=== PATIENT | female | born 1995 | race Caucasian/White ===

== ENCOUNTER 2020-08-02 06:52 | Inpatient (IN) ==
[2020-08-02 07:06] LABS: Hematocrit 33.5 % (37.0-47.0); Mean Cell Volume 86.6 fl (78-100); Mean Corpuscular Hemoglobin 28.4 pg (27-31); Mean Corpuscular Hgb Conc 32.8 g/dl (32-36); Mean Platelet Volume 9.2 fl (8-12.5); Neutrophil # 14.1 K/mm3 (1.3-6.0); Platelet Count 195 K/mm3 (150-450); Red Blood Count 3.87 M/mm3 (4.2-5.4); Red Cell Distribution Width 13.2 % (11.5-14.0); White Blood Count 17.2 K/mm3 (4.0-10.5)
[2020-08-02 07:21] LABS: Prothrombin Time (Patient) 9.9 Seconds (9.1-10.7)
[2020-08-02 07:25] LABS: Anion Gap 14.6 mmol/L (6.8-13.8); BUN/Creatinine Ratio 17.1 (9.0-21.6); Bilirubin, Total 0.4 mg/dL (0.0-1.1); Ca. Corrected For Albumin 9.3 mg/dL (8.4-10.2); INR 0.95 INR (0.92-1.08); Partial Thrombolplastin Time 22.1 Seconds (24-32); Potassium 3.6 mmol/L (3.4-4.6); Total Protein 5.5 gm/dL (6.2-8.2)
[2020-08-02] MEDS ORDERED: BUTORPHANOL TARTRATE 2 MG/ML VIAL IV PRN ×2 (07:32)
[2020-08-02] MEDS ORDERED: LIDOCAINE HCL 50 ML VIAL PERI PRN (07:32)
[2020-08-02] MEDS ORDERED: MISOPROSTOL 100 MCG TABLET VG PRN (07:32)
[2020-08-02] MEDS ORDERED: OXYTOCIN/0.9 % SODIUM CHLORIDE 30 UNITS/500 ML BAG IV ONE ×2 (07:32→09:52)
[2020-08-02] MEDS ORDERED: ONDANSETRON 4 MG TAB.RAPDIS PO PRN (07:32)
[2020-08-02] MEDS ORDERED: RINGER'S SOLUTION,LACTATED 1,000 ML IV ONE (07:32)
[2020-08-02] MEDS ORDERED: BUPIVACAINE HCL/0.9 % NACL/PF 250 ML EP PRN (07:33)
[2020-08-02] MEDS ORDERED: ONDANSETRON HCL/PF 2 MG/ML VIAL IV PRN ×2 (07:33→09:02)
[2020-08-02] MEDS ORDERED: NALOXONE HCL 1 MG/1 ML SYRG IV PRN (07:33)
[2020-08-02] MEDS ORDERED: fentaNYL CITRATE/PF 50 MCG/ML AMPUL IT SCH (07:45)
[2020-08-02] MEDS ORDERED: LIDOCAINE HCL 20 ML VIAL ONE (07:57)
[2020-08-02] MEDS ORDERED: NORMAL SALINE 20 ML VIAL ONE (07:57)
[2020-08-02] MEDS ORDERED: PROPOFOL VIAL IV ONE (07:57)
[2020-08-02] MEDS ORDERED: SUCCINYLCHOLINE CHLORIDE 20 MG/ML VIAL ONE (07:57)
[2020-08-02] MEDS: RINGER'S SOLUTION,LACTATED 1,000 ML IV PRN ×2 (08:00→08:55)
[2020-08-02] MEDS ORDERED: ceFAZolin SODIUM 1 GM VIAL IM ONE (08:00)
[2020-08-02] MEDS ORDERED: OXYTOCIN 10 UNITS/ML SYRG ONE (08:13)
[2020-08-02] MEDS ORDERED: ceFAZolin SODIUM 1 GM VIAL ONE (08:17)
[2020-08-02] MEDS ORDERED: KETOROLAC TROMETHAMINE 30 MG/ML VIAL IV PRN (09:02)
[2020-08-02] MEDS ORDERED: SENNOSIDES 8.6 MG TABLET PO PRN ×2 (09:02→09:52)
[2020-08-02] MEDS ORDERED: HYDROcodone/ACETAMINOPHEN 1 EACH TABLET PO PRN ×3 (09:02→09:52)
[2020-08-02] MEDS ORDERED: SIMETHICONE 80 MG TAB.CHEW PO PRN (09:02)
[2020-08-02] MEDS ORDERED: BISACODYL 10 MG SUPP.RECT RC PRN ×2 (09:02→09:52)
[2020-08-02] MEDS ORDERED: IBUPROFEN 800 MG TABLET PO PRN (09:02)
[2020-08-02] MEDS ORDERED: diphenhydrAMINE HCL 25 MG CAPSULE PO PRN ×2 (09:02→09:52)
[2020-08-02] MEDS ORDERED: KETOROLAC TROMETHAMINE 30 MG/ML VIAL ONE (09:19)
[2020-08-02] MEDS ORDERED: ONDANSETRON HCL/PF 2 MG/ML VIAL ONE (09:19)
--- NOTE | 2020-08-02 09:35 | HP ---
Chief Complaint - Chief Complaint Date of Service: 08/02/20 Time of Service: 09:04 Chief Complaint: heavy vaginal bleeding History of Present Illness: 25 year old at 36w 6d who presented to labor and delivery complaining of gushing large amounts of blood. The patient reported that it look like blood but no fluid. She also complained of severe abdominal pain that felt more painful than contractions. Fetus was active. Medical History (Last Reviewed 08/02/20 @ 09:07 by Catherine Melvin MD) Spontaneous vaginal delivery (Acute) Anxiety Onset Date: Unknown Depression Onset Date: Unknown Gestational hypertension Onset Date: 07/22/14 Late care Onset Date: 05/31/14 Obesity Onset Date: 10/07/15 Tonsillar hypertrophy Onset Date: 02/04/16 Surgical History: Surgical History (Last Reviewed 07/25/20 @ 09:13 by Catherine Melvin MD) H/O adenoidectomy Onset Date: Unknown History of elbow surgery Onset Date: ~1999 History of tonsillectomy Onset Date: Unknown Hx laparoscopic cholecystectomy Onset Date: 09/10/14 Family History: Family History (Last Reviewed 08/02/20 @ 09:07 by Catherine Melvin MD) Father GERD (gastroesophageal reflux disease) Lung disease Mother Alive and well Sister Alive and well Social History: (Last Reviewed 08/02/20 @ 09:07 by Catherine Melvin MD) Social History: adopted: No Marital status: household members: spouse number of children: 1 current occupational status: employed current occupation: bank courier Highest level of school completed/degree received: Associate degree: occupat Service: No Tobacco: Smoking Status: Never smoker Alcohol: alcohol intake: never Substance Use: substance use type: does not use Dietary Habits: caffeine: No Exercise: Physical activity type: none Review Of Systems (GEN) - Review of Systems Generalized/Overall Review: Present: No Symptoms Reported Abdominal: Present: Other - abdominal pain Genitourinary: Present: Other - vaginal bleeding Immunizations: IMMUNIZATION HX Immunizations Up to Date Yes History of Influenza Vaccine Yes Hx Pneumococcal Vaccination No Allergies/Adverse Reactions: Allergies Allergy/AdvReac Type Severity Reaction Status Date / Time No Known Allergies Allergy Verified 07/31/20 08:57 Home Medications: HOME MEDICATIONS levocetirizine 5 mg tablet 5 mg PO DAILY 01/21/20 [Last Taken 08/01/20] Vits96/Iron Fum/Folic [ S] 1 tab PO DAILY 07/25/20 [Last Taken 08/01/20] Exam - Exam Vital Signs: 35.7 151/99 99 96% 24 Constitutional: Present: Alert, Oriented x3, Cooperative, Acute distress ENT Exam: Present: hearing grossly normal Eye Exam: bilateral eye: normal inspection Neck: Present: normal inspection Back Exam: Present: normal inspection Breasts: Present: Exam deferred Respiratory: Present: lungs clear, normal breath sounds, no respiratory distress Cardiovascular/Chest: Present: regular rate, rhythm Abdomen: Present: soft, nondistended - tender throughout all quadrants /Rectal: Present: Other - 3/80/-2 AROM done for thick meconium, IUPC and FSE were placed Extremity: Present: non-tender, no calf tenderness Skin Exam: Present: normal color, warm/dry, no cyanosis Neurologic: Present: alert, normal mood/affect, oriented x 3 Appearance: Present: appropriate appearance, appropriate insight, neat, no memory impairment Eye contact: Present: cooperative, good eye contact, normal speech Thoughts: Present: normal thought pattern Diagnostic Studies: Abnormal Lab Results 08/02/20 08/02/20 08/02/20 Range/Units 07:00 07:00 07:00 WBC 17.2 H (4.0-10.5) K/mm3 RBC 3.87 L (4.2-5.4) M/mm3 Hgb 11.0 L (12.5-16.0) gm/dL Hct 33.5 L (37.0-47.0) % Immature Gran % (Auto) 1.60 H (0.001-0.429) % Immature Gran # (Auto) 0.28 H (0.000-0.0310) K/mm3 Neutrophils % 82.0 H (42-75.0) % Lymphocytes % 9.5 L (20-51) % Neutrophils # 14.1 H (1.3-6.0) K/mm3 Monocytes # 1.1 H (0.0-1.0) k/mm3 PTT (Winn) 22.1 L (24-32) Seconds Carbon Dioxide (24-32.6) mmol/L Anion Gap (6.8-13.8) mmol/L Random Glucose (70-110) mg/dL Alkaline Phosphatase (50-170) U/L Total Protein (6.2-8.2) gm/dL Albumin (3.4-5.0) gm/dl Crossmatch See Detail 08/02/20 Range/Units 07:00 WBC (4.0-10.5) K/mm3 RBC (4.2-5.4) M/mm3 Hgb (12.5-16.0) gm/dL Hct (37.0-47.0) % Immature Gran % (Auto) (0.001-0.429) % Immature Gran # (Auto) (0.000-0.0310) K/mm3 Neutrophils % (42-75.0) % Lymphocytes % (20-51) % Neutrophils # (1.3-6.0) K/mm3 Monocytes # (0.0-1.0) k/mm3 PTT ([place]inn) (24-32) Seconds Carbon Dioxide 19.0 L (24-32.6) mmol/L Anion Gap 14.6 H (6.8-13.8) mmol/L Random Glucose 111 H (70-110) mg/dL Alkaline Phosphatase 194 H (50-170) U/L Total Protein 5.5 L (6.2-8.2) gm/dL Albumin 2.0 L (3.4-5.0) gm/dl Crossmatch Laboratory Results WBC 17.2 K/mm3 (4.0-10.5) H 08/02/20 07:00 RBC 3.87 M/mm3 (4.2-5.4) L 08/02/20 07:00 Hgb 11.0 gm/dL (12.5-16.0) L 08/02/20 07:00 Hct 33.5 % (37.0-47.0) L 08/02/20 07:00 MCV 86.6 fl (78-100) 08/02/20 07:00 MCH 28.4 pg (27-31) 08/02/20 07:00 MCHC 32.8 g/dl (32-36) 08/02/20 07:00 RDW 13.2 % (11.5-14.0) 08/02/20 07:00 Plt Count 195 K/mm3 (150-450) 08/02/20 07:00 MPV 9.2 fl (8-12.5) 08/02/20 07:00 Immature Gran % (Auto) 1.60 % (0.001-0.429) H 08/02/20 07:00 Immature Gran # (Auto) 0.28 K/mm3 (0.000-0.0310) H 08/02/20 07:00 Neutrophils % 82.0 % (42-75.0) H 08/02/20 07:00 Lymphocytes % 9.5 % (20-51) L 08/02/20 07:00 Monocytes % 6.3 % (0.0-9) 08/02/20 07:00 Eosinophils % 0.3 % (0.0-3.0) 08/02/20 07:00 Basophils % 0.3 % (0.0-1.0) 08/02/20 07:00 Nucleated RBC % 0.0 k/mm3 (0-1) 08/02/20 07:00 Neutrophils # 14.1 K/mm3 (1.3-6.0) H 08/02/20 07:00 Lymphocytes # 1.64 k/mm3 (1.5-3.5) 08/02/20 07:00 Monocytes # 1.1 k/mm3 (0.0-1.0) H 08/02/20 07:00 Eosinophils # 0.1 k/mm3 (0.0-0.7) 08/02/20 07:00 Absolute Basophils 0.1 k/mm3 (0.0-0.1) 08/02/20 07:00 PT 9.9 Seconds (9.1-10.7) 08/02/20 07:00 INR (Anticoag Therapy) 0.95 INR (0.92-1.08) 08/02/20 07:00 PTT (Winn) 22.1 Seconds (24-32) L 08/02/20 07:00 Fibrinogen 269 mg/dL (202-388) 08/02/20 07:00 Sodium 136 mmol/L (132-142) 08/02/20 07:00 Plasma Sodium 136 mmol/L (130-142) 08/02/20 07:00 Potassium 3.6 mmol/L (3.4-4.6) 08/02/20 07:00 Chloride 106 mmol/L (97-106) 08/02/20 07:00 Carbon Dioxide 19.0 mmol/L (24-32.6) L 08/02/20 07:00 Anion Gap 14.6 mmol/L (6.8-13.8) H 08/02/20 07:00 BUN 20 mg/dL (3-23) 08/02/20 07:00 Creatinine 1.17 mg/dL (0.4-1.4) 08/02/20 07:00 Est GFR (Non-Af Amer) 61 mL/min (60-130) 08/02/20 07:00 BUN/Creatinine Ratio 17.1 (9.0-21.6) 08/02/20 07:00 Random Glucose 111 mg/dL (70-110) H 08/02/20 07:00 Calcium 8.0 mg/dL (7.9-10.9) 08/02/20 07:00 Calcium Adj for Albumin 9.3 mg/dL (8.4-10.2) 08/02/20 07:00 Total Bilirubin 0.4 mg/dL (0.0-1.1) 08/02/20 07:00 AST 24 U/L (0-48) 08/02/20 07:00 ALT 29 U/L (19-67) 08/02/20 07:00 Alkaline Phosphatase 194 U/L (50-170) H 08/02/20 07:00 Total Protein 5.5 gm/dL (6.2-8.2) L 08/02/20 07:00 Albumin 2.0 gm/dl (3.4-5.0) L 08/02/20 07:00 Blood Type A Positive 08/02/20 07:00 Antibody Screen Negative 08/02/20 07:00 Crossmatch See Detail 08/02/20 07:00 Assessment/Plan - Narrative Narrative: The patient is a 25 year old at 36w 6d who presented to labor and delivery complaining of heavy vaginal bleeding. I attempted to perform a speculum examination but just placing the speculum lead to a large gush of blood. I checked the patient's cervix and it was 3/80/-2. The patient had severe abdominal tenderness in all quadrants consistent with placental abruption. I considered ordering an ultrasound to look for evidence of placental abruption but I did not because I did not feel it would change the management. I ruptured the patient's membranes and thick meconium was noted. There was difficulty both monitoring the baby as well as the contractions and thus I placed an IUPC followed by an FSE. After close observation of the heart tracing there were no accelerations. The baseline was normal. There were late decelerations with every contraction and the variability was minimal to absent. Therefore, this category 3 tracing required a STAT delivery. The patient had stat labs checked. Her hemoglobin was normal. The platelets were normal. She had thrombocytopenia on 07/28/20 at which time her platelets were 140. Repeat assessment of the platelets on 07/29/20 and 07/31/20 respectively showed normal platelets. Fibrinogen, PT/PTT is normal on admission to L&D. - Assessment/Plan (1) Placental abruption Problem: Acute Qualifiers: Trimester: third trimester Qualified Code(s): O45.93 - Premature separation of placenta, unspecified, third trimester (2) History of thrombocytopenia Problem: Acute (3) 36 weeks gestation of Problem: Acute (4) Thick meconium stained amniotic fluid Problem: Acute (5) Pre-eclampsia Problem: Acute Qualifiers: Trimester: third trimester Qualified Code(s): O14.93 - Unspecified pre- eclampsia, third trimester (6) Normal Pap smear Problem: Acute (7) Rh(D) positive Problem: Acute (8) Heartburn Problem: Acute
--- NOTE | 2020-08-02 09:44 | OR ---
Operative Report - Dictated Report Narrative: Date of delivery: 08/02/20 Time of delivery: 815 Gender: female weight: 2639 grams APGARS: Preoperative diagnosis: IUP at 36w 6d, pre-eclampsia, placental abruption, thick meconium, category III heart tracing Postoperative diagnosis: same in addition to foul smelling amniotic fluid Procedure: STAT primary delivery Surgeon: Dr. Melvin Anesthesia: GETA Anesthesiologist: Johnie Mills CRNA Description of the procedure: The patient was taken to the operating room where general anesthesia was induced. She was then prepped and draped in the supine position in the standard surgical fashion. A large Pfannestiel skin incision was made. The incision was carried through the subcutaneous tissue. The fascia was incised in the midline. The fascia was grasped with Daniela clamps and dissected from the underlying rectus muscles. The rectus muscles were in the midline. The peritoneum was entered bluntly. A large Javi retractor was placed in the abdomen. The uterus was incised in a low transverse fashion. The uterine incision was extended bluntly. The head was delivered followed by the rest of the infant atraumatically. The cord was clamped and cut and the was handed off to the attending pediatric staff. The placenta was delivered by expression, intact, and without difficulty. A large clot was noted between the placenta and the uterine wall. The uterus was cleared of all clots and debris. The uterine incision was closed with two layers of 0-vicryl. The second layer was an imbricating layer. Hemostasis was adequate. The subfascial tissues were inspected for hemostasis as were the rectus muscles. The subcutaneous tissue was made hemostatic as well. The fascia was closed with 0-vicryl. The subcutaneous tissue 's space was closed with 2-0 vicryl. The skin was closed with 3-0 monocryl on a Gary needle. Hutchins vora was placed over the incision. The incision was covered with a band aid. All sponge, lap, and needle counts were correct. The patient tolerated the procedure well. She was taken to the recovery room in stable condition. EBL: 500 mL Complications: none History for MU Definition: * The number of deliveries resulting in a live the patient experienced prior to current hospitalization * The previous delivery of live twins or any live multiple gestation is considered one live event. *If primagravida or nulliparous is documented select zero for the number of previous live births. Live Events: 1
[2020-08-02] MEDS ORDERED: GENTAMICIN SULFATE IV ONE ×2 (09:47)
[2020-08-02] MEDS ORDERED: WATER IV ONE ×2 (09:47)
[2020-08-02] MEDS ORDERED: DEXTROSE 5% IV ONE ×2 (09:47)
[2020-08-02] MEDS ORDERED: BENZOCAINE/MENTHOL 81 SPRAY CAN TP PRN (09:52)
[2020-08-02] MEDS ORDERED: GLYCERIN/WITCH HAZEL LEAF 40 APPL BOX TP PRN (09:52)
[2020-08-02] MEDS ORDERED: HYDROCORTISONE 30 APPL TUBE TP PRN (09:52)
--- NOTE | 2020-08-02 09:58 | ANES ---
Anesthesia Pre Procedure Eval Vitals/Labs: Last Vital Signs Temp 36.0 C 08/02/20 09:35 Pulse 97 08/02/20 09:35 Resp 12 08/02/20 09:35 BP 128/83 08/02/20 09:35 Pulse Ox 97 08/02/20 09:35 HOME MEDICATIONS levocetirizine 5 mg tablet 5 mg PO DAILY 01/21/20 [Last Taken 08/01/20] Vits96/Iron Fum/Folic [ S] 1 tab PO DAILY 07/25/20 [Last Taken 08/01/20] Allergies/Adverse Reactions: Allergies Allergy/AdvReac Type Severity Reaction Status Date / Time No Known Allergies Allergy Verified 07/31/20 08:57 - Planned Procedure Planned Procedure: rule out labor Medication List Reviewed:: Yes Allergies Verified: Yes Medical History (Last Reviewed 08/02/20 @ 09:57 by Jesse Mills CRNA) Spontaneous vaginal delivery (Acute) Anxiety Onset Date: Unknown Depression Onset Date: Unknown Gestational hypertension Onset Date: 07/22/14 Late care Onset Date: 05/31/14 Obesity Onset Date: 10/07/15 Tonsillar hypertrophy Onset Date: 02/04/16 Surgical History (Last Reviewed 08/02/20 @ 09:58 by Jesse Mills CRNA) H/O adenoidectomy Onset Date: Unknown History of elbow surgery Onset Date: ~1999 History of tonsillectomy Onset Date: Unknown Hx laparoscopic cholecystectomy Onset Date: 09/10/14 Family History (Last Reviewed 08/02/20 @ 09:58 by Jesse Mills CRNA) Father GERD (gastroesophageal reflux disease) Lung disease Mother Alive and well Sister Alive and well - Family Anesthesia History Family History:: no untoward family reactions to anesthesia - Airway/Neck/Teeth Within Normal Limits:: Yes Teeth Condition: intact Neck Exam: limited range of motion Mallampatti Score: 3 Thyromental (T-M) distance: > 6 cm Mandibulo Hyoid distance: > 3 cm - Respiratory Respiratory Physical: lungs clear Smoking Status: Never smoker Sleep Apnea currently treated: No Sleep Apnea by current assessment: No - Cardiovascular Tolerate Activity: Fair Heart Sounds: S1 & S2, Regular - Gastrointestinal NPO since: MN - Anesthesia Assessment and Plan ASA Class: PS, III, E Anesthesia Type Plan: General ET Planned difficult intubation/equipment available: Yes
--- NOTE | 2020-08-02 09:58 | ANES ---
Post Anesthesia Discharge - Transfer of Care Transfer of Care handoff given to nurse: Yes - Discharge from PACU Discharge from PACU when meets criteria: Yes
--- NOTE | 2020-08-02 09:59 | ANES ---
Post Anesthesia Assessment - Vital Signs Vitals: Last Vital Signs Temp 36.0 C 08/02/20 09:35 Pulse 97 08/02/20 09:35 Resp 12 08/02/20 09:35 BP 128/83 08/02/20 09:35 Pulse Ox 97 08/02/20 09:35 Airway Patency: Normal - Mental Status Level Of Consciousness: Awake - Pain Level Pain Score: 4 - N/V Assessment Nausea/Vomiting Presence: None Dehydration:: No
[2020-08-02 10:13] LABS: Hematocrit 30.5 % (37.0-47.0); Hemoglobin 9.7 gm/dL (12.5-16.0); Mean Cell Volume 88.7 fl (78-100); Mean Corpuscular Hemoglobin 28.2 pg (27-31); Mean Corpuscular Hgb Conc 31.8 g/dl (32-36); Neutrophil % 88.6 % (42-75.0); Platelet Count 145 K/mm3 (150-450); Red Blood Count 3.44 M/mm3 (4.2-5.4); Red Cell Distribution Width 13.3 % (11.5-14.0); White Blood Count 24.9 K/mm3 (4.0-10.5)
[2020-08-02 10:16] LABS: Total Cells Counted 100
[2020-08-02 10:33] LABS: Band 5 % (0-2.0); Lymphocyte 3 % (20-51); Monocyte 3 % (0-9); Neutrophil 89 % (42-75); Neutrophil # 22.2 K/mm3 (1.3-6.0); Platelet Estimate Normal (NORMAL); RBC Morphology Normal (NORMAL)
[2020-08-02] MEDS: CLINDAMYCIN IN 0.9 % SOD CHLOR 900 MG/50 ML BAG IV SCH ×2 (11:03→17:25)
[2020-08-02] MEDS: AMPICILLIN SODIUM 2,000 MG in NORMAL SALINE 100 ML IV SCH ×3 (11:03→21:47)
[2020-08-02] MEDS ORDERED: MAGNESIUM SULFATE IN WATER 50 ML IV ONE ×2 (15:12)
[2020-08-02] MEDS ORDERED: RINGER'S SOLUTION,LACTATED 1,000 ML IV PRN (15:31)
[2020-08-02] MEDS ORDERED: MAGNESIUM SULFATE 4 MEQ/ML VIAL IV ONE (16:00)
[2020-08-02] MEDS: MAGNESIUM SULFATE IN WATER 1,000 ML IV SCH (16:52)
[2020-08-02] MEDS: IBUPROFEN 800 MG TABLET PO PRN (20:36)
[2020-08-02] MEDS ORDERED: DOCUSATE SODIUM 100 MG CAPSULE PO SCH (21:00)
[2020-08-02] MEDS: HYDROcodone/ACETAMINOPHEN 1 EACH TABLET PO PRN (21:47)
[2020-08-02] MEDS: DOCUSATE SODIUM 100 MG CAPSULE PO SCH (22:28)
[2020-08-03] MEDS: CLINDAMYCIN IN 0.9 % SOD CHLOR 900 MG/50 ML BAG IV SCH ×2 (01:41→09:58)
[2020-08-03] MEDS: AMPICILLIN SODIUM 2,000 MG in NORMAL SALINE 100 ML IV SCH (03:32)
[2020-08-03] MEDS: IBUPROFEN 800 MG TABLET PO PRN ×3 (03:40→20:35)
[2020-08-03 06:17] LABS: Hematocrit 25.3 % (37.0-47.0); Mean Corpuscular Hemoglobin 28.8 pg (27-31); Mean Corpuscular Hgb Conc 31.6 g/dl (32-36); Mean Platelet Volume 9.2 fl (8-12.5); Neutrophil # 13.2 K/mm3 (1.3-6.0); Neutrophil % 80.3 % (42-75.0); Platelet Count 137 K/mm3 (150-450); Red Blood Count 2.78 M/mm3 (4.2-5.4); Red Cell Distribution Width 13.8 % (11.5-14.0); White Blood Count 16.5 K/mm3 (4.0-10.5)
[2020-08-03] MEDS: PRENATAL VITS96/IRON FUM/FOLIC 1 TAB TABLET PO SCH (09:58)
[2020-08-03] MEDS: DOCUSATE SODIUM 100 MG CAPSULE PO SCH ×2 (09:58→20:34)
--- NOTE | 2020-08-03 11:42 | PN ---
Subjective - Date and Time Seen Date: 08/03/20 Time: 11:38 Subjective Narrative: Patient without complaints. She feels well. She denies any heavy vaginal bleeding. Objective Objective Narrative: See vital signs - Review of Systems Generalized/Overall Review: Reports: No Symptoms Reported Misc: All systems neg except as marked - Vitals Vitals: Last Vital Signs Temp 36.3 C 08/03/20 07:00 Pulse 96 08/03/20 11:00 Resp 18 08/03/20 11:00 BP 142/78 H 08/03/20 11:00 Pulse Ox 98 08/03/20 11:00 - Abnormal Lab Findings Abnormal Lab Findings: Abnormal Lab Results 08/03/20 Range/Units 06:10 WBC 16.5 H D (4.0-10.5) K/mm3 RBC 2.78 L (4.2-5.4) M/mm3 Hgb 8.0 L (12.5-16.0) gm/dL Hct 25.3 L (37.0-47.0) % MCHC 31.6 L (32-36) g/dl Plt Count 137 L (150-450) K/mm3 Immature Gran % (Auto) 0.90 H (0.001-0.429) % Immature Gran # (Auto) 0.14 H (0.000-0.0310) K/mm3 Neutrophils % 80.3 H (42-75.0) % Lymphocytes % 13.1 L (20-51) % Neutrophils # 13.2 H (1.3-6.0) K/mm3 - Exam Constitutional: Present: Alert, Oriented x3, Cooperative, No distress Neck: Present: normal inspection Abdomen: Present: soft, nontender, nondistended - dressing c/d/i Extremity: Present: non-tender, no calf tenderness Skin Exam: Present: normal color, warm/dry, no cyanosis Neurologic: Present: alert, normal mood/affect, oriented x 3 Appearance: Present: appropriate appearance, appropriate insight, neat, no memory impairment Eye contact: Present: cooperative, good eye contact, normal speech Thoughts: Present: normal thought pattern Cauti Physician Documentation - Urinary Catheter Management Urethral ([place]) Urethral Indwelling: No Date of Insertion: 08/02/20 Time of Insertion: 06:45 Assessment/Plan Plan Narrative: POD 1 s/p primary delivery Pre-eclampsia with severe features and placental abruption BPs are mild range on magnesium. Continue magnesium for 24 hours after it was started. Start procardia 30 mg XL daily 2 hours after magnesium is discontinued Diuresing well Discharge POD 3 if clinically stable - Problems/Diagnosis (1) Placental abruption Problem: Acute Qualifiers: Trimester: third trimester Qualified Code(s): O45.93 - Premature separation of placenta, unspecified, third trimester (2) History of thrombocytopenia Problem: Acute (3) 36 weeks gestation of Problem: Acute (4) Thick meconium stained amniotic fluid Problem: Acute (5) Pre-eclampsia Problem: Acute Qualifiers: Trimester: third trimester Qualified Code(s): O14.93 - Unspecified pre- eclampsia, third trimester (6) Normal Pap smear Problem: Acute (7) Rh(D) positive Problem: Acute (8) Heartburn Problem: Acute
[2020-08-03] MEDS: MAGNESIUM SULFATE IN WATER 1,000 ML IV SCH ×2 (12:01→17:47)
[2020-08-03] MEDS: HYDROcodone/ACETAMINOPHEN 1 EACH TABLET PO PRN ×2 (13:57→20:34)
[2020-08-03] MEDS: NIFEdipine 30 MG TAB.SR.24H PO SCH (19:11)
[2020-08-04] MEDS: HYDROcodone/ACETAMINOPHEN 1 EACH TABLET PO PRN ×4 (01:19→23:21)
[2020-08-04] MEDS: IBUPROFEN 800 MG TABLET PO PRN ×3 (05:41→23:22)
--- NOTE | 2020-08-04 08:03 | PN ---
Subjective - Date and Time Seen Date: 08/04/20 Time: 08:01 Subjective Narrative: Patient without complaints. She feels well. She denies any heavy vaginal bleeding. Objective Objective Narrative: See vital signs - Review of Systems Generalized/Overall Review: Reports: No Symptoms Reported Misc: All systems neg except as marked - Vitals Vitals: Last Vital Signs Temp 36.6 C 08/04/20 06:45 Pulse 91 08/04/20 06:45 Resp 20 08/04/20 06:45 BP 138/80 08/04/20 06:45 Pulse Ox 99 08/04/20 06:45 - Exam Constitutional: Present: Alert, Oriented x3, Cooperative, No distress ENT Exam: Present: hearing grossly normal Abdomen: Present: soft, nontender, nondistended - dressing c/d/i Extremity: Present: non-tender, no calf tenderness Skin Exam: Present: normal color, warm/dry, no cyanosis Neurologic: Present: alert, normal mood/affect, oriented x 3 Appearance: Present: appropriate appearance, appropriate insight, neat, no memory impairment Eye contact: Present: cooperative, good eye contact, normal speech Thoughts: Present: normal thought pattern Cauti Physician Documentation - Urinary Catheter Management Urethral ([place]) Urethral Indwelling: No Date of Insertion: 08/02/20 Time of Insertion: 06:45 Date of Removal: 08/03/20 Time of Removal: 17:00 Assessment/Plan Plan Narrative: POD 2 s/p primary delivery Pre-eclampsia and placental abruption: BPs are normal on procardia 30mg XL. Diuresing Discharge tomorrow - Problems/Diagnosis (1) Placental abruption Problem: Acute Qualifiers: Trimester: third trimester Qualified Code(s): O45.93 - Premature separation of placenta, unspecified, third trimester (2) History of thrombocytopenia Problem: Acute (3) 36 weeks gestation of Problem: Acute (4) Thick meconium stained amniotic fluid Problem: Acute (5) Pre-eclampsia Problem: Acute Qualifiers: Trimester: third trimester Qualified Code(s): O14.93 - Unspecified pre-eclampsia, third trimester (6) Normal Pap smear Problem: Acute (7) Rh(D) positive Problem: Acute (8) Heartburn Problem: Acute
[2020-08-04] MEDS: DOCUSATE SODIUM 100 MG CAPSULE PO SCH ×2 (09:25→22:11)
[2020-08-04] MEDS: PRENATAL VITS96/IRON FUM/FOLIC 1 TAB TABLET PO SCH (09:25)
[2020-08-04] MEDS: NIFEdipine 30 MG TAB.SR.24H PO SCH (09:27)
[2020-08-04] MEDS ORDERED: diphenhydrAMINE HCL 25 MG CAPSULE PO ONE (11:49)
[2020-08-04] MEDS ORDERED: ACETAMINOPHEN 500 MG TABLET PO ONE (11:49)
[2020-08-04] MEDS ORDERED: IRON SUCROSE COMPLEX 500 MG in NORMAL SALINE 250 ML IV ONE (12:30)
[2020-08-05] MEDS: HYDROcodone/ACETAMINOPHEN 1 EACH TABLET PO PRN ×4 (05:38→23:50)
[2020-08-05] MEDS: IBUPROFEN 800 MG TABLET PO PRN ×3 (05:38→23:50)
--- NOTE | 2020-08-05 07:32 | PN ---
Subjective - Date and Time Seen Date: 08/05/20 Time: 07:28 Subjective Narrative: Patient without complaints. She feels well. She denies any heavy vaginal bleeding. Objective Objective Narrative: See vital signs - Review of Systems Generalized/Overall Review: Reports: No Symptoms Reported Misc: All systems neg except as marked - Vitals Vitals: Last Vital Signs Temp 36.7 C 08/05/20 01:50 Pulse 83 08/05/20 01:50 Resp 20 08/05/20 01:50 BP 135/82 08/05/20 01:50 Pulse Ox 98 08/05/20 01:50 - Exam Constitutional: Present: Alert, Oriented x3, Cooperative, No distress ENT Exam: Present: hearing grossly normal Abdomen: Present: soft, nontender, nondistended - Incision c/d/i Extremity: Present: non-tender, no calf tenderness Skin Exam: Present: normal color, warm/dry, no cyanosis Neurologic: Present: alert, normal mood/affect, oriented x 3 Appearance: Present: appropriate appearance, appropriate insight, neat, no memory impairment Eye contact: Present: cooperative, good eye contact, normal speech Thoughts: Present: normal thought pattern Cauti Physician Documentation - Urinary Catheter Management Urethral ([place]) Urethral Indwelling: No Date of Insertion: 08/02/20 Time of Insertion: 06:45 Date of Removal: 08/03/20 Time of Removal: 17:00 Assessment/Plan Plan Narrative: POD 3 repeat delivery Doing well Iron infusion in 7 days, BP check at the time of iron infusion Discharge today - Problems/Diagnosis (1) Placental abruption Problem: Acute Qualifiers: Trimester: third trimester Qualified Code(s): O45.93 - Premature separation of placenta, unspecified, third trimester (2) History of thrombocytopenia Problem: Acute (3) 36 weeks gestation of Problem: Acute (4) Thick meconium stained amniotic fluid Problem: Acute (5) Pre-eclampsia Problem: Acute Qualifiers: Trimester: third trimester Qualified Code(s): O14.93 - Unspecified pre- eclampsia, third trimester (6) Normal Pap smear Problem: Acute (7) Rh(D) positive Problem: Acute (8) Heartburn Problem: Acute
--- NOTE | 2020-08-05 07:39 | DS ---
OB Discharge Summary (1) Placental abruption Status: Acute Qualifiers: Trimester: third trimester Qualified Code(s): O45.93 - Premature separation of placenta, unspecified, third trimester (2) History of thrombocytopenia Status: Acute (3) 36 weeks gestation of Status: Acute (4) Thick meconium stained amniotic fluid Status: Acute (5) Pre-eclampsia Status: Acute Qualifiers: Trimester: third trimester Qualified Code(s): O14.93 - Unspecified pre- eclampsia, third trimester (6) Normal Pap smear Status: Acute (7) Rh(D) positive Status: Acute (8) Heartburn Status: Acute Delivery Date: 08/02/20 Delivery Time: 08:16 :: 2 Para:: 2 Gestational weeks:: 36 Gestational days:: 6 Intrapartum Procedures: Primary Section, Delivery-Low Transverse, Other - General anesthesia Procedures: Antibiotics1 /OP Complications: Preeclampsia/GHTN Discharge Diagnosis: Preeclampsia mild/severe, Delivery, Other - chorioamnionitis, placental abruption - Discharge Information Date of Discharge: 08/05/20 Hospital Course: The patient presented to labor and delivery with signs and symptoms of placental abruption. She underwent a STAT delivery due to a category 3 tracing secondary to placental abruption. The patient's amniotic fluid was noted to be foul smelling and she had a leukocytosis so she was treated with antibiotics for endometritis prophylaxis and also prophylaxis for wound infection. She had a acute blood loss anemia mostly secondary to the abruption rather than intraoperative blood loss. She received IV iron and will receive a second dose in 7 days at the [facility]. Discharge Location: Home Disposition: Home self-care Referrals: Tatyana Alvarenga MD [Primary Care Provider] - Activity on Discharge:: Activity as tolerated, Pelvic Rest Discharge Diet: General/regular food Prescriptions (Any new or edited meds): HYDROcodone/ACETAMINOPHEN [[place] 5-325] 1 ea PO Q6H PRN 5 Days #14 tab PRN Reason: Moderate Pain (Pain Scale 4-6) Transmission Status: Received by [facility] #[id number] NIFEdipine [Procardia Xl] 30 mg PO DAILY #60 tab.sr.24h Transmission Status: Received by [facility] #[id number] Complete Home Medications List: Complete Home Medication List: levocetirizine 5 mg tablet 5 mg PO DAILY 01/21/20 Vits96/Iron Fum/Folic [ S] 1 tab PO DAILY 07/25/20 HYDROcodone/ACETAMINOPHEN [[place] 5-325] 1 ea PO Q6H PRN 5 Days #14 tab 08/03/20 Ibuprofen [Motrin] 800 mg PO Q6H PRN tab 08/03/20 NIFEdipine [Procardia Xl] 30 mg PO DAILY #60 tab.sr.24h 08/03/20 - Plan Discharge to:: Home Comment:: Routine Discharge Instructions Follow up in office in:: Other - 4 weeks - [place] Information Weight (Grams): 2,639 Infant Sex: Female Score 1 min: 3 Score 5 min: 7 Complications: Multiple Late Decels, Meconium, Other - Category 3 tracing, chorioamnionitis
[2020-08-05] MEDS: DOCUSATE SODIUM 100 MG CAPSULE PO SCH ×2 (09:02→22:00)
[2020-08-05] MEDS: PRENATAL VITS96/IRON FUM/FOLIC 1 TAB TABLET PO SCH (09:02)
[2020-08-05] MEDS: NIFEdipine 30 MG TAB.SR.24H PO SCH (09:04)
[2020-08-05 21:40] VITALS: BP 122/64
== END 2020-08-05 23:54 | disposition home or self-care (01) | DRG 788 ==
LOC: EDSTATUS 07:27 → OB 07:29 → EDSTATUS 08-03 18:00
PROVIDERS: ADMIT Obstetrics & Gynecology; ATTEND Obstetrics & Gynecology
DX: Z3A.36 36 weeks gestation of pregnancy; Z86.2 Personal history of diseases of the blood and blood-forming organs and certain disorders involving the immune mechanism; O45.93 Premature separation of placenta, unspecified, third trimester; Z37.0 Single live birth; O14.94 Unspecified pre-eclampsia, complicating childbirth; O77.0 Labor and delivery complicated by meconium in amniotic fluid; O76 Abnormality in fetal heart rate and rhythm complicating labor and delivery; D72.829 Elevated white blood cell count, unspecified